=== PATIENT | female | born 1995 ===

== ENCOUNTER 2019-10-06 05:36 | Inpatient (IN) | payer OTHER, SELFPAY ==
[2019-10-06] MEDS ORDERED: Ondansetron 4 MG/2 ML SDV IVPUSH PRN ×2 (05:45→08:33)
[2019-10-06] MEDS ORDERED: Sodium Chloride 0.9% 10 ML Syringe FLUSH PRN (05:45)
[2019-10-06] MEDS ORDERED: Citric Acid/Sodium Citrate Solution 30 ML Cup PO ONE (05:45)
[2019-10-06] MEDS ORDERED: ceFAZolin 2 GM in Premix Bag 1 BAG IV ONE (05:45)
[2019-10-06] MEDS ORDERED: Sodium Chloride 0.9% 10 ML SDV IV PRN (05:45)
[2019-10-06] MEDS ORDERED: Oxytocin/0.9 % Sodium Chloride 30 UNIT/500 ML BAG IV SCH (05:45)
[2019-10-06] MEDS ORDERED: Sodium Chloride 0.9% 2.5 ML Syringe FLUSH PRN (05:45)
[2019-10-06] MEDS: Lactated Ringers 1,000 ML IV SCH ×2 (06:42→07:36)
[2019-10-06] MEDS ORDERED: Ondansetron 4 MG/2 ML SDV ONE (07:02)
[2019-10-06] MEDS ORDERED: Phenylephrine 1% 10 MG/ML SDV ONE (07:02)
[2019-10-06] MEDS ORDERED: Ketorolac 30 MG/ML SDV ONE (07:02)
[2019-10-06] MEDS ORDERED: Sodium Chloride 0.9% 20 ML ONE ×2 (07:02→11:48)
[2019-10-06] MEDS ORDERED: Oxytocin 10 Units/1 ML SDV ONE (07:02)
[2019-10-06] MEDS ORDERED: ceFAZolin 1 GM Vial ONE ×2 (07:02→11:48)
[2019-10-06] MEDS ORDERED: Morphine PF 10 MG/10 ML SDV ONE (07:04)
--- NOTE | 2019-10-06 07:19 | PCM.PREANE ---
Preanesthetic Assessment - Anesthesia/Transfusion/Family Hx Anesthesia History: Prior Anesthesia Without Reaction Family History of Anesthesia Reaction: No Transfusion History: No Prior Transfusion(s) - Physical Assessment NPO Status Date: 10/06/19 NPO Status Time: 00:05 Height: 1.65 m Weight: 70.307 kg ASA Class: 1 Dentition: Reports: Normal Dentition Thyro-Mental Finger Breadths: 3 Mouth Opening Finger Breadths: 3 ROM/Head Extension: Full - Lab Values: Laboratory Last Values WBC 9.65 K/uL (4.0-11.0) 10/06/19 06:19 RBC 4.48 M/uL (4.30-5.90) 10/06/19 06:19 Hgb 13.7 g/dL (12.0-16.0) 10/06/19 06:19 Hct 41.2 % (36.0-46.0) 10/06/19 06:19 MCV 92.0 fL (80.0-98.0) 10/06/19 06:19 MCH 30.6 pg (27.0-32.0) 10/06/19 06:19 MCHC 33.3 g/dL (31.0-37.0) 10/06/19 06:19 RDW Std Deviation 46.4 fl (28.0-62.0) 10/06/19 06:19 RDW Coeff of Carolynn 14 % (11.0-15.0) 10/06/19 06:19 Plt Count 160 K/uL (150-400) 10/06/19 06:19 MPV 11.10 fL (7.40-12.00) 10/06/19 06:19 Nucleated RBC % 0.0 /100WBC 10/06/19 06:19 Nucleated RBCs # 0 K/uL 10/06/19 06:19 Blood Type B POSITIVE 10/06/19 06:19 Antibody Screen NEGATIVE 10/06/19 06:19 - Allergies Allergies/Adverse Reactions: Allergies Allergy/AdvReac Type Severity Reaction Status Date / Time No Known Allergies Allergy Verified 09/29/19 10:38 - Acknowledgements Anesthesia Type Planned: Spinal Pt an Appropriate Candidate for the Planned Anesthesia: Yes Alternatives and Risks of Anesthesia Discussed w Pt/Guardian: Yes Pt/Guardian Understands and Agrees with Anesthesia Plan: Yes PreAnesthesia Questionnaire HEENT History: Reports: Other (See Below) Other HEENT History: has dental braces [employer] History: Reports: Musculoskeletal History: Reports: Fracture Other Musculoskeletal History: hx of fx arm as a child - Past Surgical History Head Surgeries/Procedures: Reports: None Female Surgical History: Reports: Section - SUBSTANCE USE Smoking Status *Q: Never Smoker Tobacco Use Within Last Twelve Months: No Second Hand Smoke Exposure: No Recreational Drug Use History: No - HOME MEDS Home Medications: Home Meds Vit No.129/Iron/FA [ One Daily Tablet] 1 tab PO DAILY 09/29/19 [History] - CURRENT (IN HOUSE) MEDS Current Meds: Current Medications Lactated Ringer's (Ringers, Lactated) 1,000 mls @ 500 mls/hr IV BOLUS CARLO Last Admin: 10/06/19 06:42 Dose: 500 mls/hr Oxytocin/Sodium Chloride (Oxytocin 30 Unit/500 Ml-Ns) 30 unit in 500 mls @ 250 mls/hr IV TITRATE CARLO Ondansetron HCl (Zofran) 4 mg IVPUSH Q4H PRN PRN Reason: Nausea/Vomiting Sodium Chloride (Saline Flush) 10 ml FLUSH ASDIRECTED PRN PRN Reason: Keep Vein Open Sodium Chloride (Saline Flush) 2.5 ml FLUSH ASDIRECTED PRN PRN Reason: Keep Vein Open Sodium Chloride (Normal Saline) 10 ml IV ASDIRECTED PRN PRN Reason: IV Use Discontinued Medications Cefazolin Sodium (Ancef) Confirm Administered Dose 2 gm .ROUTE .STK-MED ONE Stop: 10/06/19 07:03 Citric Acid/Sodium Citrate (Bicitra Solution) 30 ml PO ONETIME ONE Stop: 10/06/19 05:46 Cefazolin Sodium/Dextrose 2 gm (/ Premix) 50 mls @ 100 mls/hr IV ONETIME ONE Stop: 10/06/19 06:14 Sodium Chloride (Normal Saline) Confirm Administered Dose 20 mls @ as directed .ROUTE .STK-MED ONE Stop: 10/06/19 07:03 Ketorolac Tromethamine (Toradol) Confirm Administered Dose 30 mg .ROUTE .STK- MED ONE Stop: 10/06/19 07:03 Morphine Sulfate (Duramorph Pf) Confirm Administered Dose 10 mg .ROUTE .STK-MED ONE Stop: 10/06/19 07:05 Ondansetron HCl (Zofran) Confirm Administered Dose 4 mg .ROUTE .STK-MED ONE Stop: 10/06/19 07:03 Oxytocin (Pitocin) Confirm Administered Dose 20 unit .ROUTE .STK-MED ONE Stop: 10/06/19 07:03 Phenylephrine HCl (Ismael-Synephrine) Confirm Administered Dose 10 mg .ROUTE .STK- MED ONE Stop: 10/06/19 07:03
--- NOTE | 2019-10-06 07:58 | PCM.LDHP ---
L&D History of Present Illness - General Date of Service: 10/06/19 Admit Problem/Dx: Patient Status Order with Admit Dx/Problem 10/06/19 05:51 Patient Status [ADT] Routine Admission Diagnosis/Problem Admission Diagnosis/Problem Source of Information: Patient History Limitations: Reports: No Limitations - History of Present Illness Improves with: Reports: None Worsens with: Reports: None Associated Symptoms: Reports: N - Related Data Allergies/Adverse Reactions: Allergies Allergy/AdvReac Type Severity Reaction Status Date / Time No Known Allergies Allergy Verified 09/29/19 10:38 Home Medications: Home Meds Vit No.129/Iron/FA [ One Daily Tablet] 1 tab PO DAILY 09/29/19 [History] Past Medical History HEENT History: Reports: Other (See Below) Other HEENT History: has dental braces [employer] W[employer] MACHINE History: Reports: Musculoskeletal History: Reports: Fracture Other Musculoskeletal History: hx of fx arm as a child - Past Surgical History Head Surgeries/Procedures: Reports: None Female Surgical History: Reports: Section Social & Family History - Family History HEENT: Reports: Cataract Other HEENT Family History: Patients mother Cardiac: Reports: Hypertension Other Cardiac Family History: patients mother and father Endocrine/Metabolic: Reports: Other (See Below) Other Endocrine/Metabolic Family History: patient father has Diabetes - Tobacco Use Smoking Status *Q: Never Smoker Second Hand Smoke Exposure: No - Caffeine Use Caffeine Use: Reports: Coffee, Soda, Tea Caffeine Use Comment: 1 cup - Recreational Drug Use Recreational Drug Use: No Drug Use in Last 12 Months: No H&P Review of Systems - Review of Systems: Review Of Systems: See Below General: Reports: No Symptoms HEENT: Reports: No Symptoms Pulmonary: Reports: No Symptoms Cardiovascular: Reports: No Symptoms Gastrointestinal: Reports: No Symptoms Genitourinary: Reports: No Symptoms Musculoskeletal: Reports: No Symptoms Skin: Reports: No Symptoms Psychiatric: Reports: No Symptoms Neurological: Reports: No Symptoms Hematologic/Lymphatic: Reports: No Symptoms Immunologic: Reports: No Symptoms L&D Exam - Exam Exam: See Below - Vital Signs Weight: 70.307 kg - OB Specific Contraction Intensity: Mild - Parker Score Parker Score Cervix Position: Posterior Parker Score Consistency: Medium Parker Score Effacement: 31-50% Parker Score Dilation: Closed Parker Score 's Station: -3 Parker Score Total: 2 - Exam General: Alert, Oriented HEENT: PERRLA, Conjunctiva Clear, EACs Clear, EOMI, Hearing Intact, Mucosa Moist & Ivy, Nares Patent, Normal Nasal Septum, Posterior Pharynx Clear, TMs Clear Neck: Supple, Trachea Midline Lungs: Clear to Auscultation, Normal Respiratory Effort Cardiovascular: Regular Rate, Regular Rhythm GI/Abdominal Exam: Normal Bowel Sounds, Soft, Non-Tender, No Organomegaly, No Distention, No Abnormal Bruit, No Mass, Pelvis Stable Rectal Exam: Normal Exam, Normal Rectal Tone Genitourinary: Normal external exam, Normal bimanual exam, Normal speculum exam Back Exam: Normal Inspection, Full Range of Motion Extremities: Normal Inspection, Normal Range of Motion, Non-Tender, No Pedal Edema, Normal Capillary Refill Skin: Warm, Dry, Intact Neurological: Cranial Nerves Intact, Reflexes Equal Bilateral Psychiatric: Alert, Normal Affect, Normal Mood - Patient Data Lab Results Last 24 hrs: Laboratory Results - last 24 hr 10/06/19 10/06/19 Range/Units 06:19 06:19 WBC 9.65 (4.0-11.0) K/uL RBC 4.48 (4.30-5.90) M/uL Hgb 13.7 (12.0-16.0) g/dL Hct 41.2 (36.0-46.0) % MCV 92.0 (80.0-98.0) fL MCH 30.6 (27.0-32.0) pg MCHC 33.3 (31.0-37.0) g/dL RDW Std Deviation 46.4 (28.0-62.0) fl RDW Coeff of Carolynn 14 (11.0-15.0) % Plt Count 160 (150-400) K/uL MPV 11.10 (7.40-12.00) fL Nucleated RBC % 0.0 /100WBC Nucleated RBCs # 0 K/uL Blood Type B POSITIVE Antibody Screen NEGATIVE Result Diagrams: 10/06/19 06:19 Problem List Initiated/Reviewed/Updated: Yes Orders Last 24hrs: Active Orders 24 hr Category Date Time Status Patient Status [ADT] Routine ADT 10/06/19 05:51 Active Non Stress Test [RC] PER UNIT ROUTINE Care 10/06/19 05:51 Active Notify Provider Vital Signs [RC] PRN Care 10/06/19 05:52 Active Procedure Site Prep Instruct [RC] ASDIRECTED Care 10/06/19 05:51 Active Up ad [place] [RC] ASDIRECTED Care 10/06/19 05:51 Active Verify Patient Consent Obtain [RC] ASDIRECTED Care 10/06/19 05:51 Active Vital Signs [RC] PER UNIT ROUTINE Care 10/06/19 05:51 Active RPR (SYPHILIS SERO) W/ RFLX [REF] Routine Lab 10/06/19 06:19 Received Lactated Ringers [Ringers, Lactated] 1,000 ml Med 10/06/19 05:45 Active IV BOLUS Ondansetron [Zofran] Med 10/06/19 05:45 Active 4 mg IVPUSH Q4H PRN Oxytocin/0.9 % Sodium Chloride [Oxytocin 30 Unit/500 ML Med 10/06/19 05:45 Active -NS] 30 unit in 500 ml IV TITRATE Sodium Chloride 0.9% [Normal Saline] Med 10/06/19 05:45 Active 10 ml IV ASDIRECTED PRN Sodium Chloride 0.9% [Saline Flush] Med 10/06/19 05:45 Active 10 ml FLUSH ASDIRECTED PRN Sodium Chloride 0.9% [Saline Flush] Med 10/06/19 05:45 Active 2.5 ml FLUSH ASDIRECTED PRN Peripheral IV Insertion Adult [OM.PC] Routine Oth 10/06/19 05:51 Ordered Schedule Procedure [COMM] Per Unit Routine Oth 10/06/19 05:51 Ordered Resuscitation Status Routine Resus Stat 10/06/19 05:45 Ordered Medication Orders Lactated Ringer's (Ringers, Lactated) 1,000 mls @ 500 mls/hr IV BOLUS CARLO Last Admin: 10/06/19 07:36 Dose: 500 mls/hr Infusion: 10/06/19 07:36 Dose: 500 mls/hr Admin: 10/06/19 06:42 Dose: 500 mls/hr Oxytocin/Sodium Chloride (Oxytocin 30 Unit/500 Ml-Ns) 30 unit in 500 mls @ 250 mls/hr IV TITRATE CARLO Ondansetron HCl (Zofran) 4 mg IVPUSH Q4H PRN PRN Reason: Nausea/Vomiting Sodium Chloride (Saline Flush) 10 ml FLUSH ASDIRECTED PRN PRN Reason: Keep Vein Open Sodium Chloride (Saline Flush) 2.5 ml FLUSH ASDIRECTED PRN PRN Reason: Keep Vein Open Sodium Chloride (Normal Saline) 10 ml IV ASDIRECTED PRN PRN Reason: IV Use Assessment/Plan Comment:: IUP 39 wks for elective repeat C/section.
[2019-10-06] MEDS ORDERED: Methylergonovine 0.2 MG/1 ML Amp IM PRN (08:33)
[2019-10-06] MEDS ORDERED: Bisacodyl 10 MG Supp RECTAL PRN (08:33)
[2019-10-06] MEDS ORDERED: Misoprostol 200 MCG Tab RECTAL PRN (08:33)
[2019-10-06] MEDS ORDERED: Lanolin 100% Cream 7 GM Tube TOP PRN (08:33)
[2019-10-06] MEDS ORDERED: diphenhydrAMINE 50 MG/ML SDV IVPUSH PRN (08:33)
[2019-10-06] MEDS ORDERED: Ibuprofen 800 MG Tab PO PRN (08:33)
[2019-10-06] MEDS ORDERED: Tranexamic Acid 1,000 MG in Sodium Chloride 0.9% 100 ML IV PRN (08:33)
[2019-10-06] MEDS ORDERED: Acetaminophen/oxyCODONE 325-5 MG Tab PO PRN ×2 (08:33)
[2019-10-06] MEDS ORDERED: Oxytocin 10 Units/1 ML SDV IM PRN (08:33)
--- NOTE | 2019-10-06 08:37 | PCM.OPNOTE ---
- General Post-Op/Procedure Note Date of Surgery/Procedure: 10/06/19 Operative Procedure(s): Repeat C/section. Pre Op Diagnosis: [id number] previous C/section Post-Op Diagnosis: Same Anesthesia Technique: Spinal Primary Surgeon: Som Jewell Manufacturing Group Leader: Paula Sifuentes EBL in mLs: 600 Complications: None Condition: Good
[2019-10-06] MEDS ORDERED: Octyl 2-Cyanoacrylate 1 Tube ONE (08:42)
[2019-10-06] MEDS ORDERED: Lactated Ringers 1,000 ML IV SCH (08:45)
--- NOTE | 2019-10-06 09:42 | PCM.POSTAN ---
POST ANESTHESIA ASSESSMENT - MENTAL STATUS Mental Status: Alert - RESPIRATORY Respiratory Status: Respiratory Rate WNL - CARDIOVASCULAR CV Status: Pulse Rate WNL - GASTROINTESTINAL GI Status: No Symptoms - POST OP HYDRATION Hydration Status: Adequate & Stable
--- NOTE | 2019-10-06 10:51 | OR ---
SURGEON: Som Jewell MD DATE OF PROCEDURE: 10/06/2019 PREOPERATIVE DIAGNOSIS: Intrauterine at 39 weeks, previous section, admitted for elective repeat section. POSTOPERATIVE DIAGNOSIS: Intrauterine at 39 weeks, previous section, admitted for elective repeat section. OPERATION PERFORMED: Repeat low transverse section. PRIMARY SURGEON: Som Jewell MD. HAND PLEATER: Paula Sifuentes, certified nurse hydraulic mechanic. ANESTHESIA: Spinal, Horacio Salazar and Dr. Jade. ESTIMATED BLOOD LOSS: 600 mL. COMPLICATIONS: None. INDICATION FOR SURGERY: The patient is 24. She had a previous section for failure to progress in [place]. We do not have the record, and the patient's request for trial of delivery is not approved, so she is admitted for elective repeat section. PROCEDURE IN DETAIL: The patient was brought to the OR, properly identified, and after adequate level of spinal anesthesia with a Smyth catheter in the bladder, the patient was prepped and draped in sterile fashion as usual, and after taking time-out and re- identifying the patient, a low transverse Pfannenstiel skin incision through the old scar was done. Simeon's fascia and rectus fascia were opened in direction of the incision. The 2 recti muscles were . Peritoneal cavity was entered. A low transverse uterine incision was done and extended manually with the hand. Fetus was in the vertex position, delivered without any problem, cried immediately. score later on reported as 8 and 9. The weight is not available. The placenta delivered spontaneous, complete, and intact, and then repair of the lower uterine segment was done with 2-0 Vicryl continuous interlocking in 2 layers. Reperitonealization done with 3-0 Vicryl continuous and then the peritoneal cavity evacuated completely from all blood and blood clot and closed with 3-0 Vicryl continuous. The rectus fascia was closed with #1 PDS single-strand continuous, Simeon's fascia with 3-0 Vicryl continuous, and the skin closed with 3-0 Vicryl on a Donavon needle in subcuticular fashion and Dermabond. Instrument and sponge count was correct. The patient tolerated the procedure well, went to recovery room in stable and general condition. LORIE / MODL /[id number]
[2019-10-06] MEDS: Ketorolac 30 MG/ML SDV IVPUSH SCH ×3 (11:09→20:44)
[2019-10-06] MEDS ORDERED: fentaNYL 250 MCG/5 ML SDV ONE (12:31)
[2019-10-06] MEDS ORDERED: Rocuronium 100 MG/10 ML Syringe ONE (12:39)
[2019-10-06] MEDS: Docusate Sodium 100 MG Cap PO SCH ×2 (14:24→20:45)
[2019-10-07] MEDS: Ketorolac 30 MG/ML SDV IVPUSH SCH ×2 (02:55→10:12)
--- NOTE | 2019-10-07 07:31 | PCM.DCSUM1 ---
Discharge Summary - Hospital Course Free Text/Narrative:: Discharge home with baby. Follow up in the clinic in one week for incision check. Follow up in the clinic in 6 weeks for routine visit. Diagnosis: Stroke: No Modified [place] Scale: No Symptoms at All Modified [place] Scale Score: 0 - Discharge Data Discharge Date: 10/07/19 Discharge Disposition: Home, Self-Care 01 Condition: Good - Referral to Home Health Primary Care Physician: PCP None - Patient Summary/Data Operative Procedure(s) Performed: Repeat C/section. - Patient Instructions Diet: Regular Diet as Tolerated, Drink 8-10+ Glasses/Day Activity: As Tolerated, No Strenuous Activities, Rest and Relax Today Driving: Do Not Drive Showering/Bathing: May Shower Wound/Incision Care: Keep Operative Site/Wound Site Clean and Dry Notify Provider of: Fever, Increased Pain, Swelling and Redness, Drainage, Nausea and/or Vomiting - Discharge Plan *PRESCRIPTION DRUG MONITORING PROGRAM REVIEWED*: Not Applicable *COPY OF PRESCRIPTION DRUG MONITORING REPORT IN PATIENT DIANNA: Not Applicable Prescriptions/Med Rec: Acetaminophen/oxyCODONE [Percocet 325-5 MG] 1 tab PO Q6H PRN #28 tablet PRN Reason: Pain (Moderate 4-6) Ibuprofen [Motrin] 800 mg PO Q6H PRN #90 tablet PRN Reason: mild pain or fever Home Medications: Home Meds Vit No.129/Iron/FA [ One Daily Tablet] 1 tab PO DAILY 09/29/19 [History] Acetaminophen/oxyCODONE [Percocet 325-5 MG] 1 tab PO Q6H PRN #28 tablet [Rx] Ibuprofen [Motrin] 800 mg PO Q6H PRN #90 tablet 10/07/19 [Rx] Oxygen Therapy Mode: Room Air Referrals: [facility] [Outside] Som Jewell MD [Physician] - (1 week- October 11@3:00pm w/ 6 week- November 15@ 1:30pm w/ ) - Discharge Summary/Plan Comment DC Time >30 min.: Yes - General Info Date of Service: 10/07/19 Functional Status: Reports: Pain Controlled, Tolerating Diet, Ambulating, Urinating - Review of Systems General: Reports: No Symptoms HEENT: Reports: No Symptoms Pulmonary: Reports: No Symptoms Cardiovascular: Reports: No Symptoms Gastrointestinal: Reports: No Symptoms Genitourinary: Reports: No Symptoms Musculoskeletal: Reports: No Symptoms Skin: Reports: No Symptoms Neurological: Reports: No Symptoms Psychiatric: Reports: No Symptoms - Patient Data Vitals - Most Recent: Last Vital Signs Temp 97.1 F 10/07/19 04:00 Pulse 88 10/07/19 04:00 Resp 16 10/07/19 04:00 BP 118/56 L 10/07/19 04:00 Pulse Ox 96 10/07/19 04:00 Weight - Most Recent: 155 lb I&O - Last 24 hours: Intake & Output 10/06/19 10/07/19 10/07/19 22:59 06:59 14:59 Intake Total 1000 Output Total 2800 1500 Balance -1800 -1500 Lab Results - Last 24 hrs: Laboratory Results - last 24 hr 10/07/19 Range/Units 05:36 Hgb 11.0 L (12.0-16.0) g/dL Hct 33.0 L (36.0-46.0) % Med Orders - Current: Current Medications Bisacodyl (Dulcolax) 10 mg RECTAL ONETIME PRN PRN Reason: Constipation Diphenhydramine HCl (Benadryl) 25 mg IVPUSH Q6H PRN PRN Reason: Itching or Nausea Docusate Sodium (Colace) 100 mg PO BID [facility] Last Admin: 10/06/19 20:45 Dose: 100 mg Emollient Ointment (Lansinoh Hpa) 0 gm TOP ASDIRECTED PRN PRN Reason: Sore Nipples Lactated Ringer's (Ringers, Lactated) 1,000 mls @ 500 mls/hr IV BOLUS [facility] Last Admin: 10/06/19 07:36 Dose: 500 mls/hr Oxytocin/Sodium Chloride (Oxytocin 30 Unit/500 Ml-Ns) 30 unit in 500 mls @ 250 mls/hr IV TITRATE [facility] Tranexamic Acid 1,000 mg/ (Sodium Chloride) 110 mls @ 660 mls/hr IV ONETIME PRN PRN Reason: Bleeding Lactated Ringer's (Ringers, Lactated) 1,000 mls @ 125 mls/hr IV ASDIRECTED [facility] Last Admin: 10/06/19 09:40 Dose: 125 mls/hr Ibuprofen (Motrin) 800 mg PO Q8H PRN PRN Reason: mild pain or fever Ketorolac Tromethamine (Toradol) 30 mg IVPUSH Q6H CARLO Stop: 10/07/19 08:46 Last Admin: 10/07/19 02:55 Dose: 30 mg Methylergonovine Maleate (Methergine) 0.2 mg IM ONETIME PRN PRN Reason: Excessive Vaginal Bleeding Misoprostol (Cytotec) 1,000 mcg RECTAL ONETIME PRN PRN Reason: excessive bleeding Ondansetron HCl (Zofran) 4 mg IVPUSH Q4H PRN PRN Reason: Nausea/Vomiting Last Admin: 10/06/19 12:39 Dose: 4 mg Ondansetron HCl (Zofran) 4 mg IVPUSH Q4H PRN PRN Reason: Nausea/Vomiting Oxycodone/Acetaminophen (Percocet 325-5 Mg) 1 tab PO Q4H PRN PRN Reason: Pain (moderate 4-6) Oxycodone/Acetaminophen (Percocet 325-5 Mg) 2 tab PO Q4H PRN PRN Reason: Pain (moderate 4-6) Oxytocin (Pitocin) 10 unit IM ASDIRECTED PRN PRN Reason: Excessive Vaginal Bleeding Sodium Chloride (Saline Flush) 10 ml FLUSH ASDIRECTED PRN PRN Reason: Keep Vein Open Sodium Chloride (Saline Flush) 2.5 ml FLUSH ASDIRECTED PRN PRN Reason: Keep Vein Open Sodium Chloride (Normal Saline) 10 ml IV ASDIRECTED PRN PRN Reason: IV Use Discontinued Medications Cefazolin Sodium (Ancef) Confirm Administered Dose 2 gm .ROUTE .STK-MED ONE Stop: 10/06/19 07:03 Cefazolin Sodium (Ancef) Confirm Administered Dose 2 gm .ROUTE .STK-MED ONE Stop: 10/06/19 11:49 Citric Acid/Sodium Citrate (Bicitra Solution) 30 ml PO ONETIME ONE Stop: 10/06/19 05:46 Last Admin: 10/06/19 11:11 Dose: Not Given Fentanyl (Sublimaze) Confirm Administered Dose 250 mcg .ROUTE .STK-MED ONE Stop: 10/06/19 12:32 Cefazolin Sodium/Dextrose 2 gm (/ Premix) 50 mls @ 100 mls/hr IV ONETIME ONE Stop: 10/06/19 06:14 Last Admin: 10/06/19 11:07 Dose: Not Given Sodium Chloride (Normal Saline) Confirm Administered Dose 20 mls @ as directed .ROUTE .STK-MED ONE Stop: 10/06/19 07:03 Sodium Chloride (Normal Saline) Confirm Administered Dose 20 mls @ as directed .ROUTE .STK-MED ONE Stop: 10/06/19 11:49 Ketorolac Tromethamine (Toradol) Confirm Administered Dose 30 mg .ROUTE .STK- MED ONE Stop: 10/06/19 07:03 Morphine Sulfate (Duramorph Pf) Confirm Administered Dose 10 mg .ROUTE .STK-MED ONE Stop: 10/06/19 07:05 Octyl Cyanoacrylate (Dermabond Advance) Confirm Administered Dose 1 applic .ROUTE .STK-MED ONE Stop: 10/06/19 08:43 Last Admin: 10/06/19 11:10 Dose: Not Given Ondansetron HCl (Zofran) Confirm Administered Dose 4 mg .ROUTE .STK-MED ONE Stop: 10/06/19 07:03 Oxytocin (Pitocin) Confirm Administered Dose 20 unit .ROUTE .STK-MED ONE Stop: 10/06/19 07:03 Phenylephrine HCl (Ismael-Synephrine) Confirm Administered Dose 10 mg .ROUTE .STK- MED ONE Stop: 10/06/19 07:03 Rocuronium [place] (Zemuron) Confirm Administered Dose 100 mg .ROUTE .STK-MED ONE Stop: 10/06/19 12:40 - Exam General: Reports: Alert, Oriented, Cooperative, No Acute Distress Lungs: Reports: Clear to Auscultation, Normal Respiratory Effort Cardiovascular: Reports: Regular Rate, Regular Rhythm GI/Abdominal Exam: Soft, Non-Tender (Female) Exam: Deferred Rectal (Female) Exam: Deferred Extremities: Normal Inspection, Normal Range of Motion, Non-Tender, Normal Capillary Refill Skin: Reports: Warm, Dry, Intact Wound/Incisions: Reports: Dressing Dry and Intact Neurological: Reports: No New Focal Deficit, Normal Gait, Normal Speech, Normal Tone, Strength Equal Bilateral, Sensation Intact Psy/Mental Status: Reports: Alert, Normal Affect, Normal Mood
--- NOTE | 2019-10-07 07:32 | PCM48HPAN ---
Post Anesthesia Note - EVALUATION WITHIN 48HRS OF ANESTHETIC Vital Signs in Normal Range: Yes Patient Participated in Evaluation: Yes Respiratory Function Stable: Yes Airway Patent: Yes Cardiovascular Function Stable: Yes Hydration Status Stable: Yes Pain Control Satisfactory: Yes Nausea and Vomiting Control Satisfactory: Yes Mental Status Recovered: Yes Vital Signs: Last Vital Signs Temp 36.2 C 10/07/19 04:00 Pulse 88 10/07/19 04:00 Resp 16 10/07/19 04:00 BP 118/56 L 10/07/19 04:00 Pulse Ox 96 10/07/19 04:00
[2019-10-07] MEDS: Docusate Sodium 100 MG Cap PO SCH (10:22)
== END 2019-10-07 15:30 | disposition home or self-care (01) | DRG 788 ==
LOC: MW.OB 05:36
PROVIDERS: ADMIT Obstetrics & Gynecology; ATTEND Obstetrics & Gynecology
PROC: 10D00Z1 Extraction of Products of Conception, Low, Open Approach (ICD-10-PCS; principal; 2019-10-06)
DX: O34.211 Maternal care for low transverse scar from previous cesarean delivery (principal); Z37.0 Single live birth; Z3A.39 39 weeks gestation of pregnancy
CPT/HCPCS: 01961; 36415; 59025; 85014; 85018; 85027; 86592; 86593; 86850; 86900; 86901; A9270-GY; J0690; J1885; J2270; J2370; J2405; J2590; J3010; J7120

== ENCOUNTER 2024-10-13 05:19 | Inpatient (IN) | payer BC ==
[2024-10-13] MEDS ORDERED: ceFAZolin 2 GM in Water For Injection, Sterile 20 ML IVPUSH ONE (05:22)
[2024-10-13] MEDS ORDERED: Sodium Chloride 0.9% 10 ML Syringe FLUSH PRN (05:22)
[2024-10-13] MEDS ORDERED: Sodium Chloride 0.9% 2.5 ML Syringe FLUSH PRN (05:22)
[2024-10-13] MEDS ORDERED: Sodium Chloride 0.9% 20 ML SDV IV PRN (05:22)
[2024-10-13] MEDS ORDERED: Citric Acid/Sodium Citrate Solution 30 ML Cup PO ONE (05:22)
[2024-10-13] MEDS: Lactated Ringers 1,000 ML IV SCH ×2 (05:52→17:16)
[2024-10-13 06:02] LABS: HEMATOCRIT 35.8 % (37.0-47.0); HEMOGLOBIN 11.7 g/dL (12.0-16.0); MEAN CORPUSCULAR HEMOGLOBIN 26.7 pg (28.0-32.0); MEAN CORPUSCULAR HGB CONC 32.7 g/dL (32.0-36.0); MEAN CORPUSCULAR VOLUME 81.5 fL (83.0-99.0); MEAN PLATELET VOLUME 11.6 fL (9.4-12.3); PLATELET COUNT,PLT 159 K/uL (150-400); RED BLOOD CELL COUNT 4.39 M/uL (4.10-5.30); WHITE BLOOD CELL COUNT,WBC 8.36 K/uL (3.9-11.3)
[2024-10-13] MEDS ORDERED: Phenylephrine HCl In 0.9% NaCl 1 MG/10 ML Syringe IVPUSH PRN (06:45)
[2024-10-13] MEDS ORDERED: Metoclopramide 10 MG/2 ML SDV IVPUSH PRN (06:45)
[2024-10-13] MEDS ORDERED: Albuterol 0.083% 2.5 MG/3 ML Neb Soln NEB PRN (06:45)
[2024-10-13] MEDS ORDERED: fentaNYL 100 MCG/2 ML SDV IVPUSH PRN (06:45)
[2024-10-13] MEDS ORDERED: HYDROmorphone 1 MG/ML Syringe IVPUSH PRN (06:45)
[2024-10-13] MEDS ORDERED: fentaNYL 50 MCG/ML SDV IVPUSH PRN (06:45)
[2024-10-13] MEDS ORDERED: Nalbuphine 10 MG/1 ML Vial IVPUSH PRN (06:45)
[2024-10-13] MEDS ORDERED: Naloxone 0.4 MG/ML SDV IVPUSH PRN ×2 (06:45→11:25)
[2024-10-13] MEDS ORDERED: ePHEDrine 50 MG/ML SDV IM PRN (06:45)
[2024-10-13] MEDS ORDERED: Ondansetron 4 MG/2 ML SDV IVPUSH PRN ×2 (06:45)
[2024-10-13] MEDS ORDERED: diphenhydrAMINE 50 MG/ML SDV IVPUSH PRN ×2 (06:45→11:25)
[2024-10-13] MEDS ORDERED: Morphine 2 MG/ML SYRINGE IVPUSH PRN (06:45)
[2024-10-13] MEDS ORDERED: Acetaminophen/oxyCODONE 325-5 MG Tab PO PRN ×3 (06:45→11:25)
[2024-10-13] MEDS ORDERED: ceFAZolin 1 GM Vial ONE (07:11)
[2024-10-13] MEDS ORDERED: Oxytocin 10 Units/1 ML SDV ONE (07:11)
[2024-10-13] MEDS ORDERED: Ondansetron 4 MG/2 ML SDV ONE (07:11)
[2024-10-13] MEDS ORDERED: Ropivacaine 0.5% 5 MG/ML 30 ML SDV ONE (07:11)
[2024-10-13] MEDS ORDERED: Morphine PF 10 MG/10 ML SDV ONE (07:11)
[2024-10-13] MEDS ORDERED: Bupivacaine 0.25% 30 ML SDV ONE (07:11)
[2024-10-13] MEDS ORDERED: EPINEPHrine 1 MG/1 ML Amp ONE (07:11)
[2024-10-13] MEDS ORDERED: fentaNYL 100 MCG/2 ML SDV ONE (07:11)
[2024-10-13] MEDS ORDERED: Ketorolac 30 MG/ML SDV ONE ×2 (07:11→08:52)
[2024-10-13] MEDS ORDERED: Phenylephrine HCl In 0.9% NaCl 1 MG/10 ML Syringe ONE (07:13)
[2024-10-13] MEDS: Oxytocin/0.9 % Sodium Chloride 30 UNIT/500 ML BAG IV SCH (10:24)
[2024-10-13] MEDS: Methylergonovine 0.2 MG/1 ML Amp IM ONE (11:11)
[2024-10-13] MEDS: Methylergonovine 0.2 MG/1 ML Amp ONE (11:12)
[2024-10-13] MEDS ORDERED: Bisacodyl 10 MG Supp RECTAL PRN (11:25)
[2024-10-13] MEDS ORDERED: Misoprostol 200 MCG Tab RECTAL PRN (11:25)
[2024-10-13] MEDS ORDERED: Methylergonovine 0.2 MG/1 ML Amp IM PRN (11:25)
[2024-10-13] MEDS ORDERED: Oxytocin 10 Units/1 ML SDV IM PRN (11:25)
[2024-10-13] MEDS ORDERED: Lanolin 100% Cream 7 GM Tube TOP PRN (11:25)
[2024-10-13] MEDS: Ondansetron 4 MG/2 ML SDV IVPUSH PRN (12:51)
[2024-10-13] MEDS: Ketorolac 30 MG/ML SDV IVPUSH SCH (14:59)
[2024-10-13] MEDS: Docusate Sodium 100 MG Cap PO SCH (21:06)
[2024-10-14 06:12] LABS: HEMATOCRIT 26.7 % (37.0-47.0); HEMOGLOBIN 8.9 g/dL (12.0-16.0)
[2024-10-14] MEDS ORDERED: Ibuprofen 800 MG Tab PO PRN (11:25)
== END 2024-10-14 23:30 | disposition home or self-care (01) | DRG 540 ==
LOC: MW.OB 05:19
PROVIDERS: ADMIT Obstetrics & Gynecology Obstetrics; ATTEND Obstetrics & Gynecology Obstetrics
PROC: 00JU3ZZ Inspection of Spinal Canal, Percutaneous Approach (ICD-10-PCS; 2024-10-13)
PROC: 10D00Z1 Extraction of Products of Conception, Low, Open Approach (ICD-10-PCS; principal; 2024-10-13 08:00)
DX: O34.211 Maternal care for low transverse scar from previous cesarean delivery (principal); Z3A.39 39 weeks gestation of pregnancy; Z37.0 Single live birth; O24.420 Gestational diabetes mellitus in childbirth, diet controlled
CPT/HCPCS: 01961; 36415; 51702; 59025; 64488; 82947; 85014; 85018; 85027; 86592; 86850; 86900; 86901; A9270-GY; J0665; J0690; J1100; J1885; J2210; J2274; J2371; J2405; J2590; J2795; J3010; J7120